=== PATIENT | male | born 2000 | race Caucasian/White ===

== ENCOUNTER 2024-02-09 11:56 | Day surgery (SDC) | payer OTHER ==
[2024-02-04 12:04] VITALS: BMI 22.2
[2024-02-09 13:06] LABS: #Basophils Less than 0.03 10x3/uL (0.0-0.2); %Basophils 0.2 % (0.0-1.0); %Eosinophils 1.2 % (0.0-10.0); %Lymphocytes 36.1 % (21.0-51.0); %Monocytes 11.5 % (0.0-10.0); %Neutrophils 50.8 % (42.0-75.0); Hematocrit 43.5 % (42.0-52.0); Mean Corpuscular HGB CONC 34.5 g/dL (32.0-36.0); Mean Corpuscular Hemoglobin 30.7 pg (27.0-31.0); Mean Platelet Volume 10.3 fL (7.4-10.4); Platelet Count 201 10x3/uL (130-400); RBC Distribution Width 12.2 % (11.5-14.5); Red Blood Cell (RBC) Count 4.89 mill/uL (4.70-6.10)
[2024-02-09 13:22] LABS: Anion Gap 12 mmol/L (10-20); BUN (Urea Nitrogen) 11 mg/dL (8.9-20.6); Calc. Creatinine Clearance 131 mL/min (70-130); Calcium 10.1 mg/dL (7.8-10.44); Carbon Dioxide 24 mmol/L (22-29); Chloride 105 mmol/L (98-107); Estimated GFR 124; Glucose 92 mg/dL (70-105); Potassium 3.9 mmol/L (3.5-5.1); Sodium 137 mmol/L (136-145)
[2024-02-09 13:23] LABS: Prothrombin Time 13.1 sec (12.0-14.7)
[2024-02-09] MEDS ORDERED: CEFAZOLIN 2 GM VIAL ONE (13:30)
[2024-02-09] MEDS ORDERED: Sodium Chloride 0.9% 100 ML ONE (13:30)
[2024-02-09] MEDS ORDERED: PROPOFOL 40 ML ONE (13:31)
[2024-02-09] MEDS ORDERED: fentaNYL PF 100 MCG/2 ML SYRINGE ONE (13:32)
[2024-02-09] MEDS ORDERED: Midazolam HCl 2 mg/2 ml Vial ONE (13:32)
[2024-02-09] MEDS ORDERED: Lidocaine 1% PF 5 ML VIAL ONE (13:32)
[2024-02-09] MEDS ORDERED: Dexamethasone 4 mg/ml Vial ONE (13:46)
[2024-02-09] MEDS ORDERED: Ondansetron PF 4 MG/2 ML Vial ONE (13:46)
[2024-02-09] MEDS ORDERED: Bupivacaine 0.25% HCL 30 ML VIAL ONE (13:59)
[2024-02-09] MEDS ORDERED: ePHEDrine Sulfate 50 MG/10 ML VIAL ONE (14:55)
[2024-02-09] MEDS ORDERED: fentaNYL 50 mcg/mL 1 mL Vial ONE ×2 (15:23→15:49)
[2024-02-09] MEDS ORDERED: Morphine 2 MG/ML VIAL ONE (16:02)
== END 2024-02-09 16:29 | disposition home or self-care (01) ==
LOC: SDC 11:56
PROVIDERS: ATTEND Urology
PROC: 0HBAXZZ Excision of Inguinal Skin, External Approach (ICD-10-PCS; principal; 2024-02-09)
PROC: 0VJ80ZZ Inspection of Scrotum and Tunica Vaginalis, Open Approach (ICD-10-PCS; principal; 2024-02-09)
DX: L72.0 Epidermal cyst (principal)
CPT/HCPCS: 80048; 85025; 85610; 85730; 88304; J0665; J1100; J2250; J2272; J2405; J2704; J3010; J3490